=== PATIENT | female | born 1990 | race Caucasian/White ===

== ENCOUNTER 2018-02-23 21:33 | Emergency (ER) | payer OTHER, SELFPAY ==
[2018-02-23] MEDS ORDERED: Ibuprofen 800 MG TAB ONE (22:06)
--- NOTE | 2018-02-23 22:18 | RAD ---
RIGHT ELBOW RADIOGRAPHS FOUR VIEWS: 02/23/2018 PROVIDED CLINICAL HISTORY: Elbow pain, status post injury. FINDINGS: No evidence for fracture or other acute osseous abnormality. If there is persistent clinical concern , conservative management and follow-up imaging are advised. IMPRESSION: As above. POS: [facility]
== END 2018-02-23 22:10 | disposition home or self-care (01) ==
LOC: NAV ERS 21:33
DX: S53.401A Unspecified sprain of right elbow, initial encounter (principal); F17.210 Nicotine dependence, cigarettes, uncomplicated; X50.1XXA Overexertion from prolonged static or awkward postures, initial encounter

== ENCOUNTER 2019-09-23 15:57 | Emergency (ER) | payer SELFPAY ==
[2019-09-23 16:33] LABS: Bilirubin Negative (Negative); Blood, Urine Small (Negative); Clarity Clear (Clear); Glucose, Urine (Dipstick) Negative (Negative); Ketone, Urine Negative (Negative); Leukocyte Negative (Negative); Nitrite Positive (Negative); Protein, Urine (Dipstick) Negative (Neg-Trace); Specific Gravity, Urine 1.015 (1.005-1.030); Urobilinogen 0.2 mg/dL (Less than 2)
[2019-09-23 16:42] LABS: Bacteria/HPF Rare-Few HPF (None Seen); RBC/HPF 0-3 HPF (0-3); Squamous Epithelial 0-3 HPF (0-3)
[2019-09-23 16:46] LABS: Pregnancy Test - Urine (BHCG) Negative (Negative); Pregu Control Background? CLEAR/WHITE (CLR/WHITE); Pregu Control Bar Appear? YES (CONTROL BAR); Specific Gravity 1.015 (1.002-1.036)
== END 2019-09-23 17:07 | disposition home or self-care (01) ==
LOC: NAV ERS 15:57
DX: N39.0 Urinary tract infection, site not specified (principal); F41.9 Anxiety disorder, unspecified; F17.210 Nicotine dependence, cigarettes, uncomplicated
CPT/HCPCS: 81003; 81015; 81025; 87086; 99284